=== PATIENT | male | born 1965 | race African-American/Black ===

== ENCOUNTER 2019-07-23 15:35 | Outpatient (CLI) | payer BC ==
--- NOTE | 2019-07-23 16:08 | ULT ---
ULTRASOUND DOPPLER DUPLEX VENOUS LEFT LOWER EXTREMITY: DATE: 07/23/2019 HISTORY: 53-year-old male with left lower extremity pain. TECHNIQUE: Grayscale, color-flow, and spectral analysis, of major veins of left lower extremity. FINDINGS: There is demonstration of blood flow with normal compressibility, of the left common femoral, profund a femoral, greater saphenous, femoral, popliteal, and posterior tibial, veins. There are very tortuous, dilated, thrombosed, occluded superficial veins at the lateral aspect of the left calf. The se extend into the popliteal fossa, very close to the popliteal vein, where the varicosity measures up to 12 mm or larger in caliber. There is no blood flow within these varicosities. IMPRESSION: 1. Acute thrombophlebitis with thrombosis and occlusion of large varicosities in the left leg. 2. No deep venous thrombosis of left lower extremity.
== END 2019-07-23 15:36 | disposition home or self-care (01) ==
LOC: SCSULT 15:35
PROVIDERS: ATTEND Physician Assistant
DX: I80.3 Phlebitis and thrombophlebitis of lower extremities, unspecified (principal)

== ENCOUNTER 2022-04-18 08:05 | Outpatient (CLI) | payer OTHER ==
[2022-04-18 08:59] LABS: #Basophils 0.1 10x3/uL (0.0-0.2); #Eosinphils 0.3 10x3/uL (0.0-0.5); #Neutrophils 4.3 10x3/uL (1.5-8.4); %Basophils 0.6 % (0.0-2.0); %Eosinophils 3.2 % (0.0-6.0); %Lymphocytes 27.7 % (18.0-47.0); %Monocytes 12.3 % (0.0-10.0); %Neutrophils 55.8 % (40.0-75.0); Hemoglobin 13.2 g/dL (13.5-17.5); Mean Corpuscular HGB CONC 32.6 g/dL (32.0-36.0); Mean Corpuscular Hemoglobin 32.4 pg (27.0-33.0); Mean Corpuscular Volume 99.5 fl (81.2-95.1); Mean Platelet Volume 10.3 fl (7.4-10.4); Platelet Count 239 10x3/uL (150-450); RBC Distribution Width 13.7 % (11.5-14.5); Red Blood Cell (RBC) Count 4.07 10x6/uL (4.32-5.72); White Blood Cell (WBC) Count 7.8 10x3/uL (3.5-10.5)
[2022-04-18 09:28] LABS: ALT (SGPT) 30 U/L (8-55); AST (SGOT) 31 U/L (5-34); Albumin 4.3 g/dL (3.5-5.0); Alkaline Phosphatase 37 U/L (40-110); Anion Gap 15 mmol/L (10-20); BUN (Urea Nitrogen) 21 mg/dL (8.4-25.7); Bilirubin, Total 0.2 mg/dL (0.2-1.2); Calc. Creatinine Clearance 0 mL/min (70-130); Calcium 9.2 mg/dL (7.8-10.44); Carbon Dioxide 24 mmol/L (22-29); Chloride 107 mmol/L (98-107); Estimated GFR 61; Globulin 3.5 g/dL (2.4-3.5); Glucose 126 mg/dL (70-105); Potassium 4.1 mmol/L (3.5-5.1); Protein, Total 7.8 g/dL (6.0-8.3); Sodium 142 mmol/L (136-145)
== END 2022-04-18 08:06 | disposition home or self-care (01) ==
LOC: LABBT 08:05
PROVIDERS: ATTEND Surgery
DX: U07.1 COVID-19 (principal); Z01.818 Encounter for other preprocedural examination; K43.2 Incisional hernia without obstruction or gangrene
CPT/HCPCS: 80053; 85025; 87811; 93005; 93010

== ENCOUNTER 2022-04-19 12:43 | Outpatient (CLI) | payer OTHER | END 2022-04-19 12:44 | disposition home or self-care (01) | LOC: LABBT 12:43 | DX: U07.1 COVID-19 (principal) | CPT/HCPCS: U0003; U0005 ==

== ENCOUNTER 2022-05-03 19:06 | Emergency (ER) | payer OTHER, SELFPAY ==
[~2022-05-03 19:06] MED LIST: Iopamidol-370 76% 500 ML 1 ML ONE
[2022-05-03 20:19] LABS: #Basophils 0.1 thou/uL (0.0-0.2); #Eosinphils 0.1 thou/uL (0.0-0.7); #Lymphocytes 3.4 thou/uL (1.20-3.40); #Monocytes 0.6 thou/uL (0.11-0.59); #Neutrophils 4.3 thou/uL (1.40-6.50); %Eosinophils 1.2 % (0.0-10.0); %Lymphocytes 40.2 % (21.0-51.0); %Neutrophils 50.5 % (42.0-75.0); Mean Corpuscular HGB CONC 32.8 g/dL (32.0-36.0); Mean Corpuscular Hemoglobin 33.2 pg (27.0-31.0); Mean Platelet Volume 7.6 fL (7.4-10.4); Platelet Count 372 thou/uL (130-400); Red Blood Cell (RBC) Count 3.91 mill/uL (4.70-6.10); White Blood Cell (WBC) Count 8.5 thou/uL (4.8-10.8)
[2022-05-03 20:41] LABS: ALT (SGPT) 23 U/L (8-55); AST (SGOT) 19 U/L (5-34); Albumin 4.5 g/dL (3.5-5.0); Alkaline Phosphatase 42 U/L (40-110); Anion Gap 15 mmol/L (10-20); BUN (Urea Nitrogen) 29 mg/dL (8.4-25.7); Bilirubin, Total 0.5 mg/dL (0.2-1.2); Calc. Creatinine Clearance 0 mL/min (70-130); Carbon Dioxide 22 mmol/L (22-29); Chloride 104 mmol/L (98-107); Estimated GFR 58; Glucose 82 mg/dL (70-105); Potassium 3.4 mmol/L (3.5-5.1); Protein, Total 8.5 g/dL (6.0-8.3); Sodium 138 mmol/L (136-145)
== END 2022-05-03 23:26 | disposition home or self-care (01) ==
LOC: ERS 19:06
DX: K43.9 Ventral hernia without obstruction or gangrene (principal)
CPT/HCPCS: 36415; 74177; 80053; 85025; 96360; Q9967

== ENCOUNTER 2022-05-24 08:47 | Inpatient (IN) | payer OTHER ==
[2022-05-22 15:56] VITALS: BMI 38.3
[2022-05-24] MEDS ORDERED: Bupivacaine/Epinephrine 0.25% 30 ML VIAL ONE (09:00)
[2022-05-24] MEDS ORDERED: fentaNYL Citrate/PF 100 MCG/2 ML SYRINGE ONE (10:52)
[2022-05-24] MEDS ORDERED: HYDROmorphone 0.5 MG/0.5 ML SYRINGE ONE (10:52)
[2022-05-24] MEDS ORDERED: Midazolam HCl 2 mg/2 ml Vial ONE (10:52)
[2022-05-24] MEDS ORDERED: Levofloxacin 500 mg/D5W 100 ml Premix Bag ONE (11:16)
[2022-05-24] MEDS ORDERED: Lidocaine 1% PF 5 ML VIAL ONE (11:22)
[2022-05-24] MEDS ORDERED: Dexamethasone 20 MG/5 ML VIAL ONE (11:22)
[2022-05-24] MEDS ORDERED: Rocuronium Bromide 10 MG/ML (10ML VIAL) ONE (11:22)
[2022-05-24] MEDS ORDERED: Ketorolac Tromethamine 30 MG/ML VIAL ONE (11:22)
[2022-05-24] MEDS ORDERED: Ondansetron PF 4 MG/2 ML Vial ONE ×2 (11:22→13:44)
[2022-05-24] MEDS ORDERED: Succinylcholine 200 MG/10 ml SYRINGE FS ONE (11:22)
[2022-05-24] MEDS ORDERED: PROPOFOL 200 MG/20 ML VIAL ONE (11:22)
[2022-05-24] MEDS ORDERED: Mag-Al 1200 mg/1200 mg/30 ML UDCUP PO PRN (13:31)
[2022-05-24] MEDS ORDERED: Dextrose 5% in Water 1,000 ML IV PRN (13:31)
[2022-05-24] MEDS ORDERED: Ondansetron PF 4 MG/2 ML Vial IVP PRN ×2 (13:31→13:43)
[2022-05-24] MEDS ORDERED: hydrALAZINE 20 MG/ML VIAL SLOW IVP PRN (13:31)
[2022-05-24] MEDS ORDERED: Calcium Carbonate 500 MG ChewTAB PO PRN (13:31)
[2022-05-24] MEDS ORDERED: Promethazine HCl 25 MG/ML VIAL IM PRN ×3 (13:31→13:43)
[2022-05-24] MEDS ORDERED: Dextrose 50% Abboject 50 ML SYRINGE SLOW IVP PRN (13:31)
[2022-05-24] MEDS ORDERED: Zolpidem Tartrate 5 MG TAB PO PRN (13:43)
[2022-05-24] MEDS ORDERED: diphenhydrAMINE 50 MG/ML VIAL IM PRN (13:43)
[2022-05-24] MEDS ORDERED: HYDROmorphone 10 mg/100 ml CADD IVPB PRN (13:43)
[2022-05-24] MEDS ORDERED: HYDROmorphone 2 MG/ML VIAL SLOW IVP PRN (13:43)
[2022-05-24] MEDS ORDERED: Promethazine HCl 25 MG/ML VIAL IVPB PRN (13:43)
[2022-05-24] MEDS ORDERED: Ondansetron HCl/PF 4 MG/2 ML Vial IVP PRN (13:43)
[2022-05-24] MEDS ORDERED: diphenhydrAMINE 25 MG CAP PO PRN (13:43)
[2022-05-24] MEDS ORDERED: Naloxone HCl 0.4 mg/ml Vial IV PRN (13:43)
[2022-05-24] MEDS ORDERED: Fentanyl 100 MCG/2 ML VIAL ONE (13:43)
[2022-05-24] MEDS ORDERED: diphenhydrAMINE 50 MG/ML VIAL IVP PRN (13:43)
[2022-05-24] MEDS ORDERED: Communication Order-Pharmacy FS SCH (13:45)
[2022-05-24] MEDS ORDERED: Phenazopyridine HCl 100 MG TAB ONE (15:23)
[2022-05-24] MEDS ORDERED: Promethazine HCl 25 MG/ML VIAL ONE (15:23)
[2022-05-24] MEDS: D5 1/2 NS w/20 mEq KCL 1,000 ML IV SCH ×2 (18:38→23:10)
[2022-05-24] MEDS: Ketorolac Tromethamine 30 MG/ML VIAL IVP SCH ×2 (18:40→23:10)
[2022-05-24] MEDS ORDERED: Rivaroxaban 10 MG TAB PO SCH (21:15)
[2022-05-24] MEDS ORDERED: Amlodipine 10 MG TAB PO SCH (21:15)
[2022-05-24] MEDS: Famotidine 20 MG TAB PO SCH (21:39)
[2022-05-24] MEDS: Famotidine/PF 20 mg/2ml Vial SLOW IVP SCH (21:39)
[2022-05-25] MEDS: Ketorolac Tromethamine 30 MG/ML VIAL IVP SCH (05:12)
[2022-05-25 05:42] LABS: #Lymphocytes 1.1 thou/uL (1.20-3.40); #Monocytes 0.9 thou/uL (0.11-0.59); #Neutrophils 10.3 thou/uL (1.40-6.50); %Basophils 0.1 % (0.0-1.0); %Eosinophils 0.2 % (0.0-10.0); %Lymphocytes 8.7 % (21.0-51.0); %Monocytes 7.2 % (0.0-10.0); %Neutrophils 83.9 % (42.0-75.0); Hemoglobin 11.9 g/dL (14.0-18.0); Mean Platelet Volume 8.7 fL (7.4-10.4); Platelet Count 211 thou/uL (130-400); RBC Distribution Width 12.8 % (11.5-14.5); Red Blood Cell (RBC) Count 3.49 mill/uL (4.70-6.10); White Blood Cell (WBC) Count 12.3 thou/uL (4.8-10.8)
[2022-05-25 06:01] LABS: ALT (SGPT) 20 U/L (8-55); AST (SGOT) 14 U/L (5-34); Alkaline Phosphatase 43 U/L (40-110); Anion Gap 15 mmol/L (10-20); BUN (Urea Nitrogen) 18 mg/dL (8.4-25.7); Bilirubin, Total 0.6 mg/dL (0.2-1.2); Calc. Creatinine Clearance 109 mL/min (70-130); Calcium 8.9 mg/dL (7.8-10.44); Carbon Dioxide 23 mmol/L (22-29); Chloride 104 mmol/L (98-107); Estimated GFR 70; Globulin 3.4 g/dL (2.4-3.5); Glucose 164 mg/dL (70-105); Lipase 13 U/L (8-78); Potassium 4.1 mmol/L (3.5-5.1); Protein, Total 7.4 g/dL (6.0-8.3); Sodium 138 mmol/L (136-145)
[2022-05-25] MEDS: D5 1/2 NS w/20 mEq KCL 1,000 ML IV SCH (07:38)
[2022-05-25 08:26] VITALS: BP 131/86; TEMP 98.6
[2022-05-25] MEDS: Famotidine 20 MG TAB PO SCH (08:52)
[2022-05-25] MEDS: Famotidine/PF 20 mg/2ml Vial SLOW IVP SCH (08:52)
[2022-05-25] MEDS ORDERED: Enoxaparin Sodium 40 MG/0.4 ML SYRINGE SC SCH (09:00)
[2022-05-25] MEDS ORDERED: Lisinopril/Hydrochlorothiazide 20/25 mg Tablet PO SCH (09:00)
[2022-05-25] MEDS ORDERED: Amlodipine 10 MG TAB PO SCH (21:00)
[2022-05-25] MEDS ORDERED: Rivaroxaban 10 MG TAB PO SCH (21:00)
== END 2022-05-25 11:29 | disposition home or self-care (01) | DRG 355 ==
LOC: SDC 08:47 → SJJU 18:08
PROVIDERS: ADMIT Surgery; ATTEND Surgery
PROC: 0WUF0JZ Supplement Abdominal Wall with Synthetic Substitute, Open Approach (ICD-10-PCS; principal; 2022-05-24)
DX: K43.2 Incisional hernia without obstruction or gangrene (principal); Z20.822 Contact with and (suspected) exposure to COVID-19; Z88.0 Allergy status to penicillin; Z79.899 Other long term (current) drug therapy; Z79.02 Long term (current) use of antithrombotics/antiplatelets
CPT/HCPCS: 36415; 80053; 83690; 85025; C1781; J1100; J1170; J1885; J1956; J2250; J2405; J2550; J2704; J3010; J3480

== ENCOUNTER 2023-05-25 11:09 | Emergency (ER) | payer BC ==
[2023-05-25] MEDS ORDERED: Ketorolac Tromethamine 30 MG/ML VIAL ONE (12:30)
[2023-05-25] MEDS ORDERED: Colchicine 0.6 MG TAB ONE (12:45)
== END 2023-05-25 12:55 | disposition home or self-care (01) ==
LOC: ERS 11:09
DX: M10.9 Gout, unspecified (principal); E66.9 Obesity, unspecified; I10 Essential (primary) hypertension; Z68.37 Body mass index [BMI] 37.0-37.9, adult
CPT/HCPCS: 96372; 99283; J1885

== ENCOUNTER 2023-08-18 09:35 | Emergency (ER) | payer BC, SELFPAY ==
[2023-08-18] MEDS ORDERED: Dexamethasone 10 MG/ML VIAL ONE (10:28)
[2023-08-18] MEDS ORDERED: Ketorolac Tromethamine 30 MG/ML VIAL ONE (10:28)
== END 2023-08-18 10:35 | disposition home or self-care (01) ==
LOC: ERS 09:35
DX: M10.9 Gout, unspecified (principal); I10 Essential (primary) hypertension; Z79.899 Other long term (current) drug therapy
CPT/HCPCS: 96372; 99283; J1100; J1885

== ENCOUNTER 2023-09-19 21:28 | Emergency (ER) | payer SELFPAY ==
[2023-09-19] MEDS ORDERED: Ketorolac Tromethamine 30 MG/ML VIAL ONE (21:49)
[2023-09-19] MEDS ORDERED: Dexamethasone 10 MG/ML VIAL ONE (21:49)
== END 2023-09-19 22:25 | disposition home or self-care (01) ==
LOC: ERS 21:28
DX: M10.9 Gout, unspecified (principal); I10 Essential (primary) hypertension
CPT/HCPCS: 96372; 99283; J1100; J1885

== ENCOUNTER 2023-11-02 04:49 | Emergency (ER) | payer OTHER, SELFPAY | END 2023-11-02 07:53 | disposition home or self-care (01) | LOC: ERS 04:49 | DX: M10.9 Gout, unspecified (principal); I10 Essential (primary) hypertension; Z76.0 Encounter for issue of repeat prescription; Z79.899 Other long term (current) drug therapy | CPT/HCPCS: 99282 ==

== ENCOUNTER 2024-09-08 14:13 | Emergency (ER) | payer OTHER ==
[2024-09-08] MEDS ORDERED: HYDROcodone/Acetaminophen 10/325 mg Tablet ONE (15:56)
[2024-09-08] MEDS ORDERED: Ketorolac Tromethamine 30 MG (1 mL) VIAL ONE (15:56)
[2024-09-08 16:28] LABS: #Basophils 0.04 10x3/uL (0.0-0.2); %Basophils 0.4 % (0.0-1.0); %Lymphocytes 23.5 % (21.0-51.0); %Monocytes 10.4 % (0.0-10.0); %Neutrophils 64.3 % (42.0-75.0); Hematocrit 40.8 % (42.0-52.0); Hemoglobin 13.9 g/dL (14.0-18.0); Mean Corpuscular HGB CONC 34.1 g/dL (32.0-36.0); Mean Corpuscular Hemoglobin 33.1 pg (27.0-31.0); Mean Corpuscular Volume 97.1 fL (78.0-98.0); Mean Platelet Volume 11.7 fL (7.4-10.4); Platelet Count 200 10x3/uL (130-400); RBC Distribution Width 13.7 % (11.5-14.5)
[2024-09-08 16:42] LABS: ALT (SGPT) 25 U/L (8-55); AST (SGOT) 19 U/L (5-34); Albumin 3.8 g/dL (3.5-5.0); Alkaline Phosphatase 47 U/L (40-110); Anion Gap 14 mmol/L (10-20); BUN (Urea Nitrogen) 23 mg/dL (8.4-25.7); Bilirubin, Total 1.2 mg/dL (0.2-1.2); CRP,High Sensitivity (Inhouse) 15.41 mg/dL (< or = 0.5); Calc. Creatinine Clearance 0 mL/min (70-130); Calcium 9.5 mg/dL (7.8-10.44); Carbon Dioxide 23 mmol/L (22-29); Chloride 104 mmol/L (98-107); Estimated GFR 69; Glucose 98 mg/dL (70-105); Potassium 3.6 mmol/L (3.5-5.1); Protein, Total 7.8 g/dL (6.0-8.3); Sodium 137 mmol/L (136-145)
[2024-09-08] MEDS ORDERED: Rivaroxaban 10 MG TAB ONE (17:40)
[2024-09-08] MEDS ORDERED: Rivaroxaban 15 MG TAB PO SCH (17:45)
== END 2024-09-08 17:00 | disposition home or self-care (01) ==
LOC: ERS 14:13
DX: I82.432 Acute embolism and thrombosis of left popliteal vein (principal); I10 Essential (primary) hypertension
CPT/HCPCS: 36415; 80053; 84550; 85025; 86141; 96372; J1885